=== PATIENT | female | born 1945 ===

== ENCOUNTER → 2020-02-29 | Outpatient (CLI) | payer MEDICARE, OTHER ==
[~2020-02-29] MED LIST: FURO40 PO; GABA600 PO; GABAPENTIN PO; IPRA.06NI; METCAR750 PO; MOMENI; OXCA300 PO; POTCHL10ER PO; QUIN10 PO; TRAM50 PO
[2020-02-29 12:51] LABS: Alanine Aminotransfer (ALT/SGP 15 U/L (12-78); Albumin, Blood 4.1 g/dL (3.4-5.0); Alk Phos 78 U/L (40-126); Anion Gap 11 mmol/L (6-16); Aspartate Aminotrans (AST/SGOT 20 U/L (12-37); Bilirubin, Total 0.4 mg/dL (0.1-1.0); Blood Urea Nitrogen 15 mg/dL (8-24); Bun/Creatinine Ratio 20.5 (12.0-20.0); CHOL/HDL RATIO 3.8; CO2, Blood 26 mmol/L (21-32); Calcium, Blood 9.3 mg/dL (8.5-10.1); Chloride, Blood 103 mmol/L (98-108); Cholesterol 252 mg/dL (50-200); Creatinine, Blood 0.73 mg/dL (0.40-1.00); Glomerular Filtration Rate >60 (60-); Glucose, Blood 100 mg/dL (70-99); HDL Cholesterol 67 mg/dL (>39); LDL/HDL RATIO 2.3; Low Density Lipoprotein Chol 154 mg/dL (<110); Potassium, Blood 3.8 mmol/L (3.5-5.5); Sodium, Blood 140 mmol/L (136-145); Total Protein, Blood 8.1 g/dL (6.4-8.2); Triglycerides 156 mg/dL (30-160); Very Low Density Lipoprot Chol 31 mg/dL (6-32)
== END | disposition home or self-care (01) ==
LOC: LAB EV 12:19 → LAB SHORT 12:19
PROVIDERS: Family Medicine
DX: E78.5 Hyperlipidemia, unspecified (principal); R35.8 Other polyuria
CPT/HCPCS: 36415; 80053; 80061